=== PATIENT | female | born 1965 | race Two or more races ===

== ENCOUNTER 2019-02-08 21:04 | Emergency (ER) | payer OTHER ==
[~2019-02-08] VITALS: Ht 162.6 cm; Wt 102.1 kg
[2019-02-08 21:30] VITALS: BP 158/93
--- NOTE | 2019-02-08 21:38 | Emergency Room Report ---
History of Present Illness General Chief Complaint: Dyspnea/Respdistress Source: Patient Present Illness HPI Patient is a 53-year-old female presented after increased difficulty with breathing. Patient a prior history of asthma. She reports taking Qvar. She reports having increased cough with a yellow sputum. She denies any fever. She reported an onset of symptoms this morning. She denies any leg pain or swelling. She states that she has been taking her Qvar as well as albuterol without any improvement. She is not currently on steroids. She did not take her blood pressure medication this morning. She denies any chest pain. Allergies: Coded Allergies: PENICILLINS (Verified Allergy, Intermediate, Rash, 02/08/19) Patient History Past Medical History: see triage record Last Menstrual Period: MENAPAUSE Reviewed Nursing Documentation: PMH: Agreed; PSxH: Agreed Nursing Documentation-PMH Hx Cardiac Problems: No Hx Hypertension: Yes Hx Asthma: Yes Hx COPD: No Hx Diabetes: Yes Hx Cancer: No Hx Gastrointestinal Problems: Yes Hx Dialysis: No History Of Psychiatric Problem: No Hx Neurological Problems: No Hx Seizures: No Review of Systems All Other Systems: negative except mentioned in HPI Physical Exam Vital Signs Date Time Temp Pulse Resp B/P (MAP) Pulse Ox O2 Delivery O2 Flow Rate FiO2 02/08/19 21:16 98.4 96 18 94 Room Air Sp02 EP Interpretation: reviewed, normal General Appearance: normal inspection, well appearing, no apparent distress, alert, GCS 15, obese Head: atraumatic ENT: normal ENT inspection, hearing grossly normal, normal voice Neck: normal inspection, full range of motion, supple, no bony tend Respiratory: normal inspection, no respiratory distress, no retraction, wheezing Cardiovascular #1: regular rate, rhythm, no edema Gastrointestinal: normal inspection, normal bowel sounds, non tender, soft, no guarding, no hernia Genitourinary: no CVA tenderness Musculoskeletal: normal inspection, back normal, normal range of motion Neurologic: normal inspection, alert, oriented x3, responsive, business line controller III-XII nml as tested, speech normal Psychiatric: normal inspection, judgement/insight normal, mood/affect normal Skin: normal inspection, normal color, no rash Medical Decision Making Diagnostic Impression: Primary Impression: Asthma exacerbation ER Course Patient presented for cough and wheezing. Difficult differential diagnosis include was not limited to differential diagnosis include was not limited to asthma exacerbation, pneumonia, allergic reaction among others.Patient presented for cough and difficulty breathing. Patient's cough appears to be related to recent exacerbation of her asthma. Chest x-ray 1 view view interpreted by me showed normal cardiac size without evident infiltrate. Patient was given breathing treatments as well as oral steroids. Patient was noted to have some improvement in her symptoms. She was noted to have improved air movement. Patient was offered hospitalization which she declined. Patient states she felt better and wanted to leave. Patient given prescription for oral steroids as well as inhaler. She was advised to return if any worsening of difficulty breathing or other concerns. Patient was advised to follow-up with her primary care physician for recheck. Last Vital Signs Date Time Temp Pulse Resp B/P (MAP) Pulse Ox O2 Delivery O2 Flow Rate FiO2 02/08/19 21:16 98.4 96 18 94 Room Air Status: improved Disposition: HOME, SELF-CARE Condition: Stable Scripts Guaifenesin* (ADULT WAL-TUSSIN*) 100 Mg/5 Ml Liquid 5 ML ORAL Q4H, #120 ML Prov: Alfie Garcia MD 02/09/19 Prednisone* (PREDNISONE*) 20 Mg Tablet 60 MG ORAL DAILY for 4 Days, #12 TAB Prov: Alfie Garcia MD 02/09/19 Albuterol Sulfate* (ALBUTEROL SULFATE MDI*) 8.5 Gm Hfa.aer.ad 2 PUFF INH Q4H, #1 INH 0 Refills Prov: Alfie Garcia MD 02/09/19 Alfie Garcia MD February 08, 2019 21:38
--- NOTE | 2019-02-08 21:38 | NUR ---
ED Nurse Note: Pt from home, AAOx4 c/o SOB for 2 days. VSS. Pt placed on cardiac sonographer. Will assess and carry out ERMD's orders.
[2019-02-08] MEDS ORDERED: Albuterol/Ipratropium 3ml neb HHN ONE ×3 (21:45→23:00)
[2019-02-08 23:00] VITALS: BP 146/91
[2019-02-09] MEDS ORDERED: ALBUTEROL SULF8.5 GM INH (00:06)
[2019-02-09] MEDS ORDERED: PREDNISONE20 MG ORAL (00:06)
[2019-02-09] MEDS ORDERED: ADULT WAL-100 MG/5 M ORAL (00:07)
[2019-02-09 00:13] VITALS: BP 147/90
--- NOTE | 2019-02-09 00:16 | NUR ---
ED Nurse Note: Pt cleared by health care Provider for discharge. DC instructions/prescription was given and explained to pt and verbalized understanding of teachings. All medical deviecs such as ID band removed. Pt is AAO x4, ambulatory and left with all personal belongings.
--- NOTE | 2019-02-09 12:20 | Diagnostic Imaging Report ---
Indication: Dyspnea Comparison: None A single view chest radiograph was obtained. Findings: Cardiomediastinal appearance is within normal limits for age. The lungs are clear. Pulmonary vascularity is appropriate. The diaphragmatic contour is smooth and costophrenic angles are sharp. No pleural effusions are identified. The bones are unremarkable. Impression: No acute findings
== END 2019-02-09 00:18 | disposition home or self-care (01) ==
LOC: EMR 21:42
DX: J45.901 Unspecified asthma with (acute) exacerbation (principal); R05 Cough; I10 Essential (primary) hypertension; E11.9 Type 2 diabetes mellitus without complications; Z88.0 Allergy status to penicillin; E66.9 Obesity, unspecified; Z68.38 Body mass index [BMI] 38.0-38.9, adult
CPT/HCPCS: 71045; 94640; 94664; 99284; J7512; J7620

== ENCOUNTER 2019-03-11 18:37 | Emergency (ER) | payer OTHER ==
[~2019-03-11] VITALS: Ht 162.6 cm; Wt 106.6 kg
[~2019-03-11 18:37] MED LIST: ADULT WAL-100 MG/5 M ORAL; ALBUTEROL SULF8.5 GM INH; PREDNISONE20 MG ORAL
[2019-03-11] MEDS ORDERED: SIMVASTATIN20 MG ORAL (18:49)
[2019-03-11] MEDS ORDERED: HYDROCHLOROTHIA25 MG ORAL (18:49)
[2019-03-11] MEDS ORDERED: MONTELUKAST SOD10 MG ORAL (18:49)
--- NOTE | 2019-03-11 18:53 | NUR ---
ED Nurse Note: PT FROM HOME CAME IN DUE TO ASTHMA EXACERBATION SINCE YESTERDAY AND PRODUCTIVE COUGHING X 1 WEEK. DENIES FEVER. WHEEZING NOTED. PT IS AAO X4, AMBULATORY WITH SOB AT REST.
[2019-03-11] MEDS ORDERED: Albuterol/Ipratropium 3ml neb HHN ONE ×4 (19:00→21:15)
--- NOTE | 2019-03-11 19:08 | NUR ---
HAND-OFF: Report given to MARTIN MORALES.
[2019-03-11 19:45] VITALS: BP 149/96
[2019-03-11] MEDS ORDERED: guaiFENesin 100mg/5ml Liq ud ORAL ONE (20:15)
--- NOTE | 2019-03-11 20:15 | NUR ---
ED Nurse Note: Patient got her breathing treatment, states that it did not help, ER MD notifyed.
--- NOTE | 2019-03-11 20:23 | Emergency Room Report ---
History of Present Illness General Chief Complaint: Asthma Source: Patient Present Illness HPI Patient is a 54-year-old female who presented after increased cough and congestion. Patient gradual onset of symptoms. Patient was noted to have previous history of reactive airway disease. She had previously been seen for similar symptoms in the past. She was noted to have increased nonproductive cough. Allergies: Coded Allergies: PENICILLINS (Verified Allergy, Intermediate, Rash, 02/08/19) Patient History Past Medical History: see triage record Reviewed Nursing Documentation: PMH: Agreed; PSxH: Agreed Nursing Documentation-PMH Past Medical History: No History, Except For Hx Cardiac Problems: No Hx Hypertension: Yes Hx Asthma: Yes Hx COPD: No Hx Diabetes: Yes Hx Cancer: No Hx Gastrointestinal Problems: Yes Hx Dialysis: No Hx Neurological Problems: No Hx Seizures: No Review of Systems All Other Systems: negative except mentioned in HPI Physical Exam Vital Signs Date Time Temp Pulse Resp B/P (MAP) Pulse Ox O2 Delivery O2 Flow Rate FiO2 03/11/19 18:43 98.1 86 20 149/96 (113) 95 Room Air 03/11/19 19:06 21 Sp02 EP Interpretation: reviewed, normal General Appearance: normal inspection, well appearing, no apparent distress, alert Head: atraumatic ENT: normal ENT inspection, hearing grossly normal, normal voice Neck: normal inspection, full range of motion, supple, no bony tend Respiratory: normal inspection, no respiratory distress, no retraction, wheezing Cardiovascular #1: regular rate, rhythm, no edema Gastrointestinal: normal inspection, normal bowel sounds, non tender, soft, no guarding, no hernia Genitourinary: no CVA tenderness Musculoskeletal: normal inspection, back normal, normal range of motion Neurologic: normal inspection, alert, oriented x3, responsive, clinical research scientist III-XII nml as tested, speech normal Psychiatric: normal inspection, judgement/insight normal, mood/affect normal Skin: normal inspection, normal color, no rash Medical Decision Making Diagnostic Impression: Primary Impression: Asthma exacerbation ER Course Patient presented for shortness of breath. Differential included but was not limited to anemia, pneumonia, pneumothorax, myocardial infarction, pericardial effusion, congestive heart failure, acidosis. Patient was noted to have some evidence of reactive airway disease. She was given breathing treatments as well as oral steroids. Chest x-ray 1 view interpreted by me showed normal cardiac size without evident infiltrate. Patient was given multiple breathing treatments with some improvement. She is given prescription for oral steroids as well as nebulized albuterol. Patient advised to return if she felt worse. She is advised to follow-up with her primary care physician in 1 to 2 days for recheck. Last Vital Signs Date Time Temp Pulse Resp B/P (MAP) Pulse Ox O2 Delivery O2 Flow Rate FiO2 03/11/19 19:45 78 16 100 Room Air 21 03/11/19 19:45 98.1 149/96 Status: improved Disposition: HOME, SELF-CARE Condition: Stable Scripts Albuterol Sulfate* (ALBUTEROL SULFATE HHN*) 2.5 Mg/3 Ml Vial.neb 2.5 MG HHN Q4H PRN for Shortness of Breath, #25 VIAL Prov: Alfie Garcia MD 03/11/19 Prednisone* (PREDNISONE*) 20 Mg Tablet 60 MG ORAL DAILY, #12 TAB Prov: Alfie Garcia MD 03/11/19 Albuterol Sulfate* (ALBUTEROL SULFATE MDI*) 8.5 Gm Hfa.aer.ad 2 PUFF INH Q6H, #1 INH 0 Refills Prov: Alfie Garcia MD 03/11/19 Referrals: NOT CHOSEN [facility]/,REFERRING (PCP) Alfie Garcia MD Mar 11, 2019 20:23
--- NOTE | 2019-03-11 20:35 | NUR ---
ED Nurse Note: Patient got second breathing treatment and stated that feel a lot better.
[2019-03-11] MEDS ORDERED: ALBUTEROL SULF8.5 GM INH (22:07)
[2019-03-11] MEDS ORDERED: PREDNISONE20 MG ORAL (22:07)
[2019-03-11] MEDS ORDERED: ALBUTEROL2.5 MG/3 M HHN (22:12)
[2019-03-11 22:15] VITALS: BP 149/96
--- NOTE | 2019-03-12 11:09 | Diagnostic Imaging Report ---
Indication: Dyspnea Comparison: 02/08/2019 A single view chest radiograph was obtained. Findings: Cardiomediastinal appearance is within normal limits for age. The lungs are clear. Pulmonary vascularity is appropriate. The diaphragmatic contour is smooth and costophrenic angles are sharp. No pleural effusions are identified. The bones are unremarkable. Impression: No acute findings
== END 2019-03-11 22:42 | disposition home or self-care (01) ==
LOC: EMR 19:03
DX: J45.901 Unspecified asthma with (acute) exacerbation (principal); E11.9 Type 2 diabetes mellitus without complications; I10 Essential (primary) hypertension; Z88.0 Allergy status to penicillin
CPT/HCPCS: 71045; 93005; 94640; 99284; J7512; J7620

== ENCOUNTER 2019-04-25 19:17 | Inpatient (IN) | payer OTHER ==
[~2019-04-25] VITALS: Ht 162.6 cm; Wt 106.6 kg
[~2019-04-25 19:17] MED LIST changes: +ALBUTEROL2.5 MG/3 M HHN; +HYDROCHLOROTHIA25 MG ORAL; +MONTELUKAST SOD10 MG ORAL; +SIMVASTATIN20 MG ORAL
[2019-04-25] MEDS ORDERED: Albuterol/Ipratropium 3ml neb HHN ONE ×2 (19:30→20:15)
[2019-04-25 19:38] VITALS: BP 144/78
--- NOTE | 2019-04-25 19:41 | NUR ---
ED Nurse Note: Patient walked in to ER c/o SOB, astma exacerbation x 2 days. AAO x4, pt's O2 sat 88 % placed patient on 2 L, other VSS at this time.
[2019-04-25 21:11] LABS: APPEARANCE,URINE CLEAR; BILIRUBIN, URINE NEGATIVE (NEGATIVE); COLOR,URINE PALE YELLOW; GLUCOSE, URINE (UA) NEGATIVE (NEGATIVE); KETONES,URINE NEGATIVE (NEGATIVE); LEUKOCYTE ESTERASE ,URINE 1+ (NEGATIVE); NITRITE,URINE NEGATIVE (NEGATIVE); PH,URINE 6 (4.5-8.0); PROTEIN,URINE NEGATIVE (NEGATIVE); UROBILINOGEN,URINE NORMAL MG/DL (0.0-1.0)
[2019-04-25 21:14] LABS: BASOPHILS % (AUTO) 1.7 % (0.0-2.0); EOSINOPHILS % (AUTO) 11.3 % (0.0-3.0); HEMATOCRIT 44.8 % (37.0-47.0); HEMOGLOBIN 14.9 G/DL (12.0-16.0); LYMPHOCYTES % (AUTO) 32.2 % (20.0-45.0); MEAN CORPUSCULAR VOLUME 83 FL (80-99); MONOCYTES % (AUTO) 6.3 % (1.0-10.0); NEUTROPHILS % (AUTO) 48.4 % (45.0-75.0); PLATELET COUNT 288 K/UL (150-450); RED BLOOD COUNT 5.41 M/UL (4.20-5.40); RED CELL DISTRIBUTION WIDTH 12.3 % (11.6-14.8); WHITE BLOOD COUNT 12.8 K/UL (4.8-10.8)
[2019-04-25] MEDS ORDERED: Solu-MEDROL 125mg Inj IVP ONE (21:15)
[2019-04-25 21:21] LABS: INR 0.9 (0.9-1.1)
--- NOTE | 2019-04-25 21:23 | Emergency Room Report ---
History of Present Illness General Chief Complaint: Asthma Source: Medical Record Present Illness HPI 54-year-old female with history of asthma and prediabetes here complaining of asthma exacerbation x2 days. Patient has been using her albuterol inhaler with minimal relief. Reports that she has been coughing and feeling feverish for the past few days. Denies sore throat and congestion. Patient is expressing a lot of wheezing and has minimal diaphoresis. However she denies chest pain, palpitation, abdominal pain, nausea vomiting. Patient denies smoking tobacco, drug use, alcohol intake. Has not taken medications to alleviate her symptoms. Patient was previously here 1 month ago with similar symptoms and was discharged with albuterol inhaler and oral steroids. Patient does not have a primary care provider. Allergies: Coded Allergies: PENICILLINS (Verified Allergy, Intermediate, Rash, 02/08/19) Patient History Past Medical History: see triage record Past Surgical History: unable to obtain Pertinent Family History: none Now: No Immunizations: UTD Reviewed Nursing Documentation: PMH: Agreed; PSxH: Agreed Nursing Documentation-PMH Hx Cardiac Problems: No Hx Hypertension: Yes Hx Asthma: Yes Hx COPD: No Hx Diabetes: Yes Hx Cancer: No Hx Gastrointestinal Problems: Yes Hx Dialysis: No Hx Neurological Problems: No Hx Seizures: No Review of Systems All Other Systems: negative except mentioned in HPI Physical Exam Vital Signs Date Time Temp Pulse Resp B/P (MAP) Pulse Ox O2 Delivery O2 Flow Rate FiO2 04/25/19 19:21 98.1 88 22 144/78 (100) 93 Room Air 04/25/19 20:06 2.0 28 Sp02 EP Interpretation: reviewed, abnormal - O2 sat 93% General Appearance: alert, GCS 15, non-toxic, mild distress Head: normocephalic, atraumatic Eyes: bilateral eye normal inspection, bilateral eye PERRL ENT: hearing grossly normal, normal pharynx, no angioedema, TMs + canals normal Neck: normal inspection, full range of motion, supple Respiratory: chest non-tender, no rhonchi, no retraction, no accessory muscle use, wheezing - Diffuse wheezing Cardiovascular #1: normal inspection, normal peripheral pulses, regular rate, rhythm, no murmur, normal capillary refill Gastrointestinal: normal inspection, normal bowel sounds, non tender, soft Rectal: deferred Genitourinary: no CVA tenderness Musculoskeletal: normal inspection, back normal, digits/nails normal Neurologic: normal inspection, alert, oriented x3 Psychiatric: normal inspection, judgement/insight normal, memory normal Skin: no rash Lymphatic: normal inspection, no adenopathy Medical Decision Making PA Attestation All my diagnosis and treatment plans were reviewed ad discussed with my supervising physician Dr. Sharif Diagnostic Impression: Primary Impression: Pneumonia Additional Impression: Asthma exacerbation ER Course 54-year-old female with history of asthma and prediabetes here complaining of asthma exacerbation x2 days. Patient has been using her albuterol inhaler with minimal relief. Reports that she has been coughing and feeling feverish for the past few days. Denies sore throat and congestion. Patient is expressing a lot of wheezing and has minimal diaphoresis. However she denies chest pain, palpitation, abdominal pain, nausea vomiting. Patient denies smoking tobacco, drug use, alcohol intake. Has not taken medications to alleviate her symptoms. Patient was previously here 1 month ago with similar symptoms and was discharged with albuterol inhaler and oral steroids. Patient does not have a primary care provider. Ddx considered but are not limited to: bronchitis, PNA, URI viral, asthma exacerbation Vital signs: are WNL, pt. is afebrile H&PE are most consistent with: Asthma exacerbation ORDERS: Chest x-ray, pneumonia admission work-up ED INTERVENTIONS: 2 treatments of albuterol ipratropium nebulizer, Solu-Medrol, magnesium, Levaquin Patient was admited with diagnosis of pneumonia to Dr. Alvarado under supervision of Dr.: Sharif pt stable at time of admission Patient O2 sat 89% despite treatment and has abnormal chest x-ray with infiltrates suggesting PNA EKG Diagnostic Results Rate: normal Rhythm: NSR ST Segments: no acute changes Chest X-Ray Diagnostic Results Chest X-Ray Diagnostic Results : Chest X-Ray Ordered: Yes # of Views/Limited/Complete: 1 View Indication: Shortness of Breath EP Interpretation: Yes PA Xray: Interpretation reviewed, by supervising MD, and agrees with findings. Interpretation: no pneumothorax, other - infiltrates both lower lobes Impression: Other - PNA Electronically Signed by: Rossana Cade PA-C Last Vital Signs Date Time Temp Pulse Resp B/P (MAP) Pulse Ox O2 Delivery O2 Flow Rate FiO2 04/25/19 20:30 87 22 92 Nasal Cannula 2.0 28 04/25/19 19:38 98.1 144/78 Disposition: ADMITTED INPATIENT Condition: Stable Referrals: NOT CHOSEN [facility]/,REFERRING (PCP) Rossana Jean Apr 25, 2019 21:23
[2019-04-25 21:26] LABS: ANION GAP 9 mmol/L (5-15); BLOOD UREA NITROGEN 14 mg/dL (7-18); CALCIUM 9.9 MG/DL (8.5-10.1); CARBON DIOXIDE 29 MMOL/L (21-32); CHLORIDE 104 MMOL/L (98-107); CREATININE 0.8 MG/DL (0.55-1.30); POTASSIUM 3.6 MMOL/L (3.5-5.1); SODIUM 142 MMOL/L (136-145)
[2019-04-25 21:30] LABS: ALANINE AMINOTRANSFERASE 35 U/L (12-78); ALBUMIN 4.2 G/DL (3.4-5.0); ALBUMIN/GLOBULIN RATIO 1.1 (1.0-2.7); ALKALINE PHOSPHATASE 130 U/L (46-116); ASPARTATE AMINO TRANSFERASE 20 U/L (15-37); BILIRUBIN,TOTAL 0.3 MG/DL (0.2-1.0)
[2019-04-25 21:38] VITALS: BP 138/82
--- NOTE | 2019-04-25 22:31 | History and Physical ---
History of Present Illness General Date patient seen: Apr 25, 2019 Time patient seen: 10:20 Reason for Hospitalization: Asthma Present Illness HPI istory of asthma and prediabetes here complaining of asthma exacerbation x2 days. Patient has been using her albuterol inhaler with minimal relief. Reports that she has been coughing and feeling feverish for the past few days. Denies sore throat and congestion. Patient is expressing a lot of wheezing and has minimal diaphoresis. However she denies chest pain, palpitation, abdominal pain, nausea vomiting. Patient denies smoking tobacco, drug use, alcohol intake. Has not taken medications to alleviate her symptoms. Patient was previously here 1 month ago with similar symptoms and was discharged with albuterol inhaler and oral steroids. Patient does not have a primary care provider. Allergies: Coded Allergies: PENICILLINS (Verified Allergy, Intermediate, Rash, 02/08/19) Medication History Scheduled Albuterol Sulfate* (Albuterol Sulfate Mdi*), 2 PUFF INH Q4H Albuterol Sulfate* (Albuterol Sulfate Mdi*), 2 PUFF INH Q6H Guaifenesin* (Adult [employer]-Tussin*), 5 ML ORAL Q4H Hydrochlorothiazide* (Hydrochlorothiazide*), 25 MG ORAL DAILY, (Reported) Montelukast Sodium* (Montelukast Sodium*), 10 MG ORAL DAILY, (Reported) Prednisone* (Prednisone*), 60 MG ORAL DAILY Prednisone* (Prednisone*), 60 MG ORAL DAILY Simvastatin (Zocor), 20 MG ORAL BEDTIME, (Reported) Scheduled PRN Albuterol Sulfate* (Albuterol Sulfate Hhn*), 2.5 MG HHN Q4H PRN for Shortness of Breath Patient History Healthcare decision maker Resuscitation status Advanced Directive on File Review of Systems Constitutional: Reports: see HPI Eye: Reports: no symptoms ENT: Reports: no symptoms Respiratory: Reports: see HPI Cardiovascular: Reports: see HPI Gastrointestinal: Reports: no symptoms Genitourinary: Reports: no symptoms Musculoskeletal: Reports: no symptoms Skin: Reports: no symptoms Psychiatric: Reports: no symptoms Neurological: Reports: no symptoms Endocrine: Reports: see HPI Hematologic/Lymphatic: Reports: no symptoms Physical Exam General Appearance: WD/WN, alert, moderate distress, overweight HEENT: normocephalic, atraumatic, anicteric, mucous membranes moist, PERRL, EOMI, supple, no JVD Neck: supple Respiratory/Chest: respiratory distress, rhonchi - bilaterally Cardiovascular/Chest: regular rhythm, regularly irregular, tachycardia Abdomen: normal bowel sounds, soft, no organomegaly Extremities: no edema Skin Exam: warm/dry Neurologic: no motor/sensory deficits, oriented x 3 Last 24 Hour Vital Signs Date Time Temp Pulse Resp B/P (MAP) Pulse Ox O2 Delivery O2 Flow Rate FiO2 04/25/19 20:30 87 22 92 Nasal Cannula 2.0 28 04/25/19 20:21 85 23 92 Nasal Cannula 2.0 28 04/25/19 20:06 78 20 98 Nasal Cannula 2.0 28 04/25/19 20:06 78 20 98 Nasal Cannula 2.0 28 04/25/19 19:38 88 22 Room Air 04/25/19 19:38 98.1 88 22 144/78 93 Room Air 04/25/19 19:21 98.1 88 22 144/78 (100) 93 Room Air Laboratory Tests Test 04/25/19 20:45 White Blood Count 12.8 K/UL (4.8-10.8) H Red Blood Count 5.41 M/UL (4.20-5.40) H Hemoglobin 14.9 G/DL (12.0-16.0) Hematocrit 44.8 % (37.0-47.0) Mean Corpuscular Volume 83 FL (80-99) Mean Corpuscular Hemoglobin 27.6 PG (27.0-31.0) Mean Corpuscular Hemoglobin Concent 33.3 G/DL (32.0-36.0) Red Cell Distribution Width 12.3 % (11.6-14.8) Platelet Count 288 K/UL (150-450) Mean Platelet Volume 7.4 FL (6.5-10.1) Neutrophils (%) (Auto) 48.4 % (45.0-75.0) Lymphocytes (%) (Auto) 32.2 % (20.0-45.0) Monocytes (%) (Auto) 6.3 % (1.0-10.0) Eosinophils (%) (Auto) 11.3 % (0.0-3.0) H Basophils (%) (Auto) 1.7 % (0.0-2.0) Prothrombin Time 9.6 SEC (9.30-11.50) Prothromb Time International Ratio 0.9 (0.9-1.1) Activated Partial Thromboplast Time 26 SEC (23-33) Urine Color Pale yellow Urine Appearance Clear Urine pH 6 (4.5-8.0) Urine Specific [place] 1.020 (1.005-1.035) Urine Protein Negative (NEGATIVE) Urine Glucose (UA) Negative (NEGATIVE) Urine Ketones Negative (NEGATIVE) Urine Blood Negative (NEGATIVE) Urine Nitrite Negative (NEGATIVE) Urine Bilirubin Negative (NEGATIVE) Urine Urobilinogen Normal MG/DL (0.0-1.0) Urine Leukocyte Esterase 1+ (NEGATIVE) H Urine RBC 0 /HPF (0 - 2) Urine WBC 2-4 /HPF (0 - 2) Urine Squamous Epithelial Cells Occasional /LPF Urine Bacteria None /HPF (NONE) Sodium Level 142 MMOL/L (136-145) Potassium Level 3.6 MMOL/L (3.5-5.1) Chloride Level 104 MMOL/L (98-107) Carbon Dioxide Level 29 MMOL/L (21-32) Anion Gap 9 mmol/L (5-15) Blood Urea Nitrogen 14 mg/dL (7-18) Creatinine 0.8 MG/DL (0.55-1.30) Estimat Glomerular Filtration Rate > 60 mL/min (>60) Glucose Level 114 MG/DL (74-106) H Calcium Level 9.9 MG/DL (8.5-10.1) Total Bilirubin 0.3 MG/DL (0.2-1.0) Aspartate Amino Transf (AST/SGOT) 20 U/L (15-37) Alanine Aminotransferase (ALT/SGPT) 35 U/L (12-78) Alkaline Phosphatase 130 U/L (46-116) H Troponin I 0.002 ng/mL (0.000-0.056) Total Protein 8.0 G/DL (6.4-8.2) Albumin 4.2 G/DL (3.4-5.0) Globulin 3.8 g/dL Albumin/Globulin Ratio 1.1 (1.0-2.7) Height (Feet): 5 Height (Inches): 4.00 Weight (Pounds): 235 Medications Current Medications Medications (Trade) Dose Ordered Sig/Rodrigo Route PRN Reason Start Time Stop Time Status Last Admin Dose Admin Magnesium Sulfate 100 ml @ 100 mls/hr Q1H IVPB 04/25/19 21:15 04/25/19 23:14 04/25/19 21:52 Assessment/Plan Assessment/Plan: 1. Pneumonia admit hosp. continue antibiotics. pending cultures pulm consult dr Jackson 2. ASsthma- nebs sterids bronchodilators 3. prediabestes hold metformin ssi 4. htn- monitor BP Jaden Sanches MD Apr 25, 2019 22:31
--- NOTE | 2019-04-25 23:27 | NUR ---
ED Nurse Note: Patient was admited to [facility] due to pneumonia. AAO x4, pt's O2 sat 99% at 4 L via simple mask, VSS at this time, skin is dry warm to touch. Patient was transfered to the unit via gurney, with all belongings.
[2019-04-26] MEDS ORDERED: Albuterol/Ipratropium 3ml neb HHN PRN ×2 (00:15→15:15)
--- NOTE | 2019-04-26 00:30 | NUR ---
NURSE NOTES: Patient in bed, awake, alert and verbally responsive. Able to make needs known. All belongings at bedside. Cellphone at bedside. Bed in low and locked position. Provided safe environment. Call light is at bedside. IV site noted, IV antibiotic infusing. SKin is warm and dry to touch. Abdomen is soft and non distended. No complaint of pain or discomfort noted. Respiration is even and unlabored. Will continue plan of care.
[2019-04-26] MEDS ORDERED: METFORMIN HCL500 M1 ORAL (00:43)
[2019-04-26 04:00] VITALS: BP 131/75
[2019-04-26] MEDS: NovoLOG Insulin Flexpen SUBQ SCH ×4 (06:33→21:12)
--- NOTE | 2019-04-26 07:05 | NUR ---
HAND-OFF: Report given to ANDREW Glass.
[2019-04-26 07:25] LABS: BASOPHILS % (AUTO) 0.8 % (0.0-2.0); EOSINOPHILS % (AUTO) 0.5 % (0.0-3.0); HEMATOCRIT 46.6 % (37.0-47.0); HEMOGLOBIN 15.4 G/DL (12.0-16.0); LYMPHOCYTES % (AUTO) 14.7 % (20.0-45.0); MEAN CORPUSCULAR VOLUME 85 FL (80-99); MONOCYTES % (AUTO) 1.5 % (1.0-10.0); NEUTROPHILS % (AUTO) 82.5 % (45.0-75.0); PLATELET COUNT 295 K/UL (150-450); RED BLOOD COUNT 5.51 M/UL (4.20-5.40); RED CELL DISTRIBUTION WIDTH 12.7 % (11.6-14.8); WHITE BLOOD COUNT 7.8 K/UL (4.8-10.8)
[2019-04-26 07:38] LABS: ANION GAP 12 mmol/L (5-15); BLOOD UREA NITROGEN 11 mg/dL (7-18); CALCIUM 9.6 MG/DL (8.5-10.1); CARBON DIOXIDE 25 MMOL/L (21-32); CHLORIDE 105 MMOL/L (98-107); CREATININE 0.8 MG/DL (0.55-1.30); POTASSIUM 3.9 MMOL/L (3.5-5.1); SODIUM 142 MMOL/L (136-145)
[2019-04-26] MEDS ORDERED: Albuterol/Ipratropium 3ml neb ONE (07:48)
[2019-04-26 08:00] VITALS: BP 135/82
--- NOTE | 2019-04-26 08:13 | NUR ---
NURSE NOTES: Patient is alert and oriented. Patient eating breakfast. Side rails are upx2, bed is locked, in lowest position, and call light is within reach. Will continue to monitor.
[2019-04-26] MEDS: Heparin 5000 units/ml inj SUBQ SCH ×2 (08:59→20:52)
[2019-04-26 12:00] VITALS: BP 127/89
--- NOTE | 2019-04-26 13:22 | Diagnostic Imaging Report ---
Indication: Dyspnea Comparison: 03/11/2019 A single view chest radiograph was obtained. Findings: Cardiomediastinal appearance is within normal limits for age. The lungs are clear. Pulmonary vascularity is appropriate. The diaphragmatic contour is smooth and costophrenic angles are sharp. No pleural effusions are identified. The bones are unremarkable. Impression: No acute findings
--- NOTE | 2019-04-26 13:26 | NUR ---
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 ASTHMA EXACERBATION VS: BP 144/78, P 88, T 98.1, RR 22, SpO2 92 on 4.0 S-MASK WBC 12.8, RBC 5.41 IS:ALBUTEROL 3ml HHN LEVOFLOXACIN 150ml IVPB SOLU-MEDROL 125mg IVP MAGNESIUM SULFATE 100ml IVPB ADMITTED TO MED/SURG DCP: RETURN HOME
--- NOTE | 2019-04-26 15:17 | Consultation ---
Consult Note Assessment/Plan DICT # [id number] Silver Jackson MD Apr 26, 2019 15:17
[2019-04-26 16:00] VITALS: BP 134/72
--- NOTE | 2019-04-26 16:30 | NUR ---
*-* INSURANCE *-* ALL CLINICALS AND REVIEWS HAVE BEEN FAXED TO: [employer] AUTH# [id number] FAX ALL CLINICALS TO: [phone] INCLUDE AUTH NUMBER WHEN FAXING Addendum: 04/27/19 at 0916 by STEVE JENNINGS [employer] DIETZ:MALI REF# [id number] P:[phone] F:[phone]
--- NOTE | 2019-04-26 17:46 | General Progress Note ---
Assessment/Plan Assessment/Plan: 54 year old female with PMH of Asthma and HTN admitted for asthma exacerbation 2 /2 URI Asthma exacerbation 2/2 URI nebs sterids bronchodilators continue antibiotics. pending cultures pulm consult dr Jackson DM hold metformin ssi htn- monitor BP acceptable -cont diet control #Dispo -likely dc in AM Code Sap Project Manager of note may not reflect time of encounter Subjective Date patient seen: Apr 26, 2019 Allergies: Coded Allergies: PENICILLINS (Verified Allergy, Intermediate, Rash, 02/08/19) Subjective No acute overnight events, pt still with diffused wheezing, states she feels better than prior. has no other complaints. Objective Last 24 Hour Vital Signs Date Time Temp Pulse Resp B/P (MAP) Pulse Ox O2 Delivery O2 Flow Rate FiO2 04/26/19 16:00 98.8 91 19 134/72 (92) 94 04/26/19 12:00 98.8 102 20 127/89 (102) 95 04/26/19 08:30 Room Air 04/26/19 08:01 91 20 99 Room Air 21 04/26/19 08:00 97.0 102 19 135/82 (99) 95 04/26/19 07:52 98 21 95 Room Air 21 04/26/19 07:50 102 21 95 Room Air 21 04/26/19 04:00 97.1 66 18 131/75 (93) 98 04/26/19 00:46 Room Air 04/25/19 23:25 98.2 87 22 137/67 99 Simple Mask 4.0 04/25/19 21:38 98.1 87 21 138/82 92 Nasal Cannula 2.0 28 04/25/19 20:30 87 22 92 Nasal Cannula 2.0 28 04/25/19 20:21 85 23 92 Nasal Cannula 2.0 28 04/25/19 20:06 78 20 98 Nasal Cannula 2.0 28 04/25/19 20:06 78 20 98 Nasal Cannula 2.0 28 04/25/19 19:38 88 22 Room Air 04/25/19 19:38 98.1 88 22 144/78 93 Room Air 04/25/19 19:21 98.1 88 22 144/78 (100) 93 Room Air Intake and Output 04/25/19 04/26/19 19:00 07:00 Intake Total 100 ml Balance 100 ml Intake IV Total 100 ml # Voids 3 Laboratory Tests 04/25/19 20:45: White Blood Count 12.8H, Red Blood Count 5.41H, Hemoglobin 14.9, Hematocrit 44.8 , Mean Corpuscular Volume 83, Mean Corpuscular Hemoglobin 27.6, Mean Corpuscular Hemoglobin Concent 33.3, Red Cell Distribution Width 12.3, Platelet Count 288, Mean Platelet Volume 7.4, Neutrophils (%) (Auto) 48.4, Lymphocytes (% ) (Auto) 32.2, Monocytes (%) (Auto) 6.3, Eosinophils (%) (Auto) 11.3H, Basophils (%) (Auto) 1.7, Prothrombin Time 9.6, Prothromb Time International Ratio 0.9, Activated Partial Thromboplast Time 26, Urine Color Pale yellow, Urine Appearance Clear, Urine pH 6, Urine Specific [place] 1.020, Urine Protein Negative, Urine Glucose (UA) Negative, Urine Ketones Negative, Urine Blood Negative, Urine Nitrite Negative, Urine Bilirubin Negative, Urine Urobilinogen Normal, Urine Leukocyte Esterase 1+H, Urine RBC 0, Urine WBC 2-4, Urine Squamous Epithelial Cells Occasional, Urine Bacteria None, Sodium Level 142, Potassium Level 3.6, Chloride Level 104, Carbon Dioxide Level 29, Anion Gap 9, Blood Urea Nitrogen 14, Creatinine 0.8, Estimat Glomerular Filtration Rate > 60 , Glucose Level 114H, Calcium Level 9.9, Total Bilirubin 0.3, Aspartate Amino Transf (AST/SGOT) 20, Alanine Aminotransferase (ALT/SGPT) 35, Alkaline Phosphatase 130H, Troponin I 0.002, Total Protein 8.0, Albumin 4.2, Globulin 3.8 , Albumin/Globulin Ratio 1.1 04/26/19 05:36: White Blood Count 7.8, Red Blood Count 5.51H, Hemoglobin 15.4, Hematocrit 46.6, Mean Corpuscular Volume 85, Mean Corpuscular Hemoglobin 28.0, Mean Corpuscular Hemoglobin Concent 33.0, Red Cell Distribution Width 12.7, Platelet Count 295, Mean Platelet Volume 7.6, Neutrophils (%) (Auto) 82.5H, Lymphocytes (%) (Auto) 14.7L, Monocytes (%) (Auto) 1.5, Eosinophils (%) (Auto) 0.5, Basophils (%) (Auto ) 0.8, Sodium Level 142, Potassium Level 3.9, Chloride Level 105, Carbon Dioxide Level 25, Anion Gap 12, Blood Urea Nitrogen 11, Creatinine 0.8, Estimat Glomerular Filtration Rate > 60, Glucose Level 144H, Calcium Level 9.6, Lactic Acid Level 1.80 Height (Feet): 5 Height (Inches): 4.00 Weight (Pounds): 235 Objective General Appearance: WD/WN, alert, moderate distress, overweight HEENT: normocephalic, atraumatic, anicteric, mucous membranes moist, PERRL, EOMI, supple, no JVD Neck: supple Respiratory/Chest: diffuse wheezing Cardiovascular/Chest: regular rhythm, regularly irregular, tachycardia Abdomen: normal bowel sounds, soft, no organomegaly Extremities: no edema Skin Exam: warm/dry Neurologic: no motor/sensory deficits, oriented x 3 Georgette Boss MD Apr 26, 2019 17:46
--- NOTE | 2019-04-26 18:25 | Cardiology Report ---
APPROVED REPORT EKG Measurement Heart [id number] Normal sinus rhythm Normal ECG
[2019-04-26] MEDS: Albuterol/Ipratropium 3ml neb HHN SCH (19:00)
--- NOTE | 2019-04-26 19:15 | NUR ---
HAND-OFF: Report given to ANDREW Farias.
[2019-04-26 20:00] VITALS: BP 143/78
[2019-04-26] MEDS ORDERED: Atorvastatin 20mg tab ORAL SCH (21:00)
[2019-04-27] VITALS: BP 140/78
--- NOTE | 2019-04-27 00:19 | NUR ---
NURSE NOTES: AWAKE ,ALERT,ORIENTED ,RECEIVING RESP.TX.CLAIMED SHE STILL HAVING PRODUCTIVE COUGH.
[2019-04-27] MEDS: Albuterol/Ipratropium 3ml neb HHN SCH ×3 (00:25→13:11)
--- NOTE | 2019-04-27 00:30 | Consultation ---
DATE OF CONSULTATION: 04/26/2019 PULMONARY CONSULTATION CONSULTING PHYSICIAN: Silver Jackson M.D. REFERRING PHYSICIAN: Georgette Selby M.D. REASON FOR CONSULTATION: Asthma exacerbation. HISTORY OF PRESENT ILLNESS: The patient is a 54-year-old female with a history of obesity, asthma, hypertension, hyperlipidemia, and diabetes, presenting with several days of cough, congestion, shortness of breath, not improving despite multiple albuterol inhaled treatments at home. No maintenance inhalers. She is on Singulair. No fevers or chills. No headaches. No rhinorrhea. No nausea, vomiting, diarrhea, or constipation. Since coming to the hospital, she has been afebrile, mildly tachycardic, saturating well on room air. Chest x-ray was unremarkable. Laboratories are remarkable for mild leukocytosis. She was given intravenous steroids and breathing treatments in the ER and admitted for further management. She was placed on Levaquin for a possible pneumonia. PAST MEDICAL HISTORY: 1. Asthma. 2. Obesity. 3. Hypertension. 4. Hyperlipidemia. 5. Diabetes. MEDICATIONS: Prior to admission medications reviewed. Current medications reviewed. ALLERGIES: Penicillin. SOCIAL HISTORY: No tobacco, alcohol, or drug use. FAMILY HISTORY: Noncontributory. PHYSICAL CONSULTATION: VITAL SIGNS: Temperature 97, pulse 102, blood pressure 135/82, respiratory rate 19, and saturating well on room air. GENERAL: Obese female, in no acute distress. Awake, alert, and oriented x3. HEENT: Normocephalic and atraumatic. Oropharynx has moist mucous membrane. NECK: Supple without lymphadenopathy or JVD. CHEST: End expiratory wheezing, but good air movement. HEART: Regular rate and rhythm. ABDOMEN: Soft, nontender, and nondistended. EXTREMITIES: No cyanosis, clubbing, or edema. ANCILLARY DATA: White count 7.8, hemoglobin 15.4, and platelet count 295,000. INR 0.9. Sodium 142, potassium 3.8, chloride 105, bicarbonate 25, BUN 11, creatinine 0.8, and glucose 144. Urinalysis 1+ leukocyte esterase. Chest x-ray unremarkable. ASSESSMENT: The patient is a 54-year-old obese female with a history of asthma, hypertension, hyperlipidemia, and diabetes, presenting with asthma exacerbation likely secondary to URI versus bronchitis. I do not see any infiltrate on her x-ray. PROBLEM LIST: 1. Asthma with acute exacerbation. 2. Likely antecedent URI/bronchitis. 3. Hypertension, hyperlipidemia, diabetes, and obesity. TREATMENT PLAN: 1. Optimize pulmonary hygiene/mobilize as tolerated. 2. P.r.n. O2. 3. Izjvc-blj-twbnu and p.r.n. bronchodilators. 4. Prednisone 40 mg p.o. b.i.d., and taper. 5. Continue Levaquin for now, today is day 2, can discontinue home to complete a 5 day course. 6. We will discharge the patient home on a Medrol Dosepak. 7. DVT prophylaxis and ambulation. 8. Mucinex and p.r.n. Robitussin. 9. The patient is a Full Code. Dr. Selby, thank you for allowing me to assist in the care of your patient. If I may be of any assistance in the future, please do not hesitate to ask. Silver Jackson M.D. DR: JOSY JOB#: [id number] CC:
[2019-04-27 04:00] VITALS: BP 124/70
[2019-04-27] MEDS: NovoLOG Insulin Flexpen SUBQ SCH ×2 (06:30→11:19)
[2019-04-27 08:00] VITALS: BP 129/81
--- NOTE | 2019-04-27 08:02 | NUR ---
NURSE NOTES: pt in bed with no sob nor in any form of distress noted. breathing regular and unlabored. denies pain at this time. bed in lowest position. call light within reach at all time. will continue to monitor
[2019-04-27] MEDS ORDERED: Levofloxacin 500mg tab ORAL SCH (09:00)
[2019-04-27] MEDS: Heparin 5000 units/ml inj SUBQ SCH (09:30)
[2019-04-27 12:00] VITALS: BP 129/82
--- NOTE | 2019-04-27 13:54 | NUR ---
NO EXPERIENCECOVER REMOVER SI: PNA,ASTHMA EXACERBATION T. 97.4 HR 69 RR 18 B/P 129/82 RA 97% IS: LEVAQUIN PO PREDNISONE PO HEPARIN SUBC ALB HHN MED/SURG STATUS
--- NOTE | 2019-04-27 14:00 | NUR ---
*-* INSURANCE *-* UPDATED CLINICALS AND REVIEWS HAVE BEEN FAXED TO: YOHAN DIETZ:MALI REF# [id number] P:[phone] F:[phone]
[2019-04-27] MEDS ORDERED: LEVAQUIN500 MG ORAL (14:08)
[2019-04-27] MEDS ORDERED: MEDROL DOSEPAK4 MG ORAL (14:08)
--- NOTE | 2019-04-27 14:09 | Discharge Instructions ---
Discharge Instructions Discharge Instructions Follow up with: pcp Call MD/Return to Hospital if: intractable pain, fevers, intractable vomiting Diet: diabetic calorie control Resume Normal Activity?: Yes Activity: resume normal activities For Congestive Heart Failure Reminder Report to your physician any weight gain of 5 pounds or more in one week. Georgette Boss MD Apr 27, 2019 14:09
--- NOTE | 2019-04-27 16:08 | NUR ---
NURSE NOTES: pt discharged to home picked up by pt's daughter with stable condition. pt denies pain nor discomfort at this time. VSS. all discharge instruction given to pt and verbalized understanding. pt received medication refill from [facility] and knows how to take. IV heplock removed and covered with gauze and taped. VSS.
--- NOTE | 2019-05-04 19:06 | Discharge Summary ---
Discharge Summary Hospital Course Date of Admission Apr 25, 2019 at 20:46 Date of Discharge Apr 27, 2019 at 16:06 Admitting Diagnosis PNEUMONIA HPI Zoie Murphy is a 54 year old female who was admitted on Apr 25, 2019 at 20:46 for Pneumonia istory of asthma and prediabetes here complaining of asthma exacerbation x2 days. Patient has been using her albuterol inhaler with minimal relief. Reports that she has been coughing and feeling feverish for the past few days. Denies sore throat and congestion. Patient is expressing a lot of wheezing and has minimal diaphoresis. However she denies chest pain, palpitation, abdominal pain, nausea vomiting. Patient denies smoking tobacco, drug use, alcohol intake. Has not taken medications to alleviate her symptoms. Patient was previously here 1 month ago with similar symptoms and was discharged with albuterol inhaler and oral steroids. Patient does not have a primary care provider. Consultations Pulmonary Hospital Course 54 year old female with PMH of Asthma and HTN admitted for asthma exacerbation 2 /2 URI and possible pneumonia. Pt was treated with nebulizers, steroids and antibiotics. Pt evaluated by pulmonary, symptoms improved with treatment. Pt will continue Albuterol PRN, medrol pack and Levaquin 500mg BID x 7 days on discharge. On discharge pt was tolerating PO diet, ambulating with a stable gait and hemodynamically stable. Discharge Medications New Medications: Methylprednisolone (Methylprednisolone*) 4MG Dspk 4 MG ORAL DIRECTED for 6 Days, #21 EA 0 Refills Day 1: Two tablets before breakfast, one after lunch, one after dinner, and two at bedtime. If started late in the day, take all six tablets at once or divide into two or three doses, unless otherwise directed by prescriber. Day 2: One tablet before breakfast, one after lunch, one after dinner, and two at bedtime Day 3: One tablet before breakfast, one after lunch, one after dinner, and one at bedtime Day 4: One tablet before breakfast, one after lunch, and one at bedtime Day 5: One tablet before breakfast and one at bedtime Day 6: One tablet before breakfast Levofloxacin* (Levaquin*) 500 Mg Tablet 500 MG ORAL DAILY for 3 Days, #3 TAB Continued Medications: Albuterol Sulfate* (Albuterol Sulfate Mdi*) 8.5 Gm Hfa.aer.ad 2 PUFF INH Q4H, #1 INH 0 Refills Albuterol Sulfate* (Albuterol Sulfate Mdi*) 8.5 Gm Hfa.aer.ad 2 PUFF INH Q6H, #1 INH 0 Refills Albuterol Sulfate* (Albuterol Sulfate Hhn*) 2.5 Mg/3 Ml Vial.neb 2.5 MG HHN Q4H PRN for Shortness of Breath, #25 VIAL Guaifenesin* (Adult Wal-Tussin*) 100 Mg/5 Ml Liquid 5 ML ORAL Q4H, #120 ML Hydrochlorothiazide* (Hydrochlorothiazide*) 25 Mg Tablet 25 MG ORAL DAILY, TAB (This prescription has been renewed) Metformin Hcl* (Metformin Hcl*) 500 Mg Tablet 500 MG ORAL DAILY, TAB (This prescription has been renewed) Montelukast Sodium* (Montelukast Sodium*) 10 Mg Tablet 10 MG ORAL DAILY, TAB (This prescription has been renewed) Simvastatin (Zocor) 20 Mg Tablet 20 MG ORAL BEDTIME, TAB (This prescription has been renewed) Discontinued Medications: Prednisone* (Prednisone*) 20 Mg Tablet 60 MG ORAL DAILY for 4 Days, #12 TAB Prednisone* (Prednisone*) 20 Mg Tablet 60 MG ORAL DAILY, #12 TAB Discharge Condition Upon Discharge: stable Discharge Disposition Patient was discharged to home with hh Discharge Diagnoses: (1) Pneumonia (2) Diabetes (3) Hypertension (4) Asthma exacerbation Discharge Instructions Discharge Instructions Follow up with: pcp Call MD/Return to Hospital if: intractable pain, fevers, intractable vomiting Activity: resume normal activities Georgette Boss MD May 04, 2019 19:06
== END 2019-04-27 16:06 | disposition home or self-care (01) | DRG 194 ==
LOC: EMR 19:41 → 4E 20:46 → EDBEDREQ 22:40 → 4E 23:26
DX: J18.9 Pneumonia, unspecified organism (principal); J45.901 Unspecified asthma with (acute) exacerbation; Z88.0 Allergy status to penicillin; R73.03 Prediabetes; Z79.84 Long term (current) use of oral hypoglycemic drugs; I10 Essential (primary) hypertension; E78.5 Hyperlipidemia, unspecified; E66.9 Obesity, unspecified
CPT/HCPCS: 36415; 71045; 80048; 80053; 81001; 82962; 83605; 84484; 85025; 85610; 85730; 86850; 86900; 86901; 93005; 94640; 94664; 96365; 96375; 99285; J1815; J7620